=== PATIENT | male | born 1950 | race Two or more races ===

== ENCOUNTER 2024-08-14 00:52 | Emergency (ER) | payer OTHER ==
[~2024-08-14] VITALS: Ht 177.8 cm; Wt 90.9 kg
[2024-08-14 01:56] LABS: COVID19 ANTIGEN SOFIA FIA NEGATIVE (NEGATIVE); Rapid Influenza A Negative (Negative)
[2024-08-14 01:57] LABS: Rapid Influenza B Positive (Negative)
--- NOTE | 2024-08-14 02:07 | ED.PDOC ---
SOB-HPI HPI Comments 73y F who presents to the ED via EMS for chief complaint of flu-like symptoms. Pt states he has been having flu-like symptoms including cough, congestion and runny nose for the past 1 days. Pt states he also slipped and fell onto his knees earlier today and had difficulty getting back up and had to call his sister to help. Pt states after he was taken inside, he called EMS due to his increasing weakness he has been having all day today. Pt states his nephew came to [facility] 1 days prior and tested positive for the Flu. EMS gave pt breathing treatment en route and pt now saturation at 98% on o2 in the ED with noted temp of 100.3 F and BP of 165/87. Pt otherwise in no noted respiratory distress. Pt denies any other symptoms at this time. Chief Complaint: Flu like Time Seen by MD: 02:05 Reviewed notes: Analytical Laboratory Technician Notes Information Source: Patient Mode of Arrival: EMS Vital Signs Vital Signs Date Time Temp Pulse Resp B/P (MAP) Pulse Ox O2 Delivery O2 Flow Rate FiO2 08/14/24 02:49 98.1 08/14/24 02:48 113 19 96 Nasal Cannula* 2 28 08/14/24 02:41 157/76 (103) Physical Exam General: Awake, alert and oriented. No acute distress. Skin: Skin in warm, dry and intact. Appropriate color for ethnicity. HEENT: The head is normocephalic and atraumatic. Conjunctivae are clear without exudates or hemorrhage. Sclera is non-icteric. EOM are intact. No signs of nystagmus. Eyelids are normal in appearance without swelling or lesions. Oral mucosa is pink and moist Neck: The neck is supple with normal range of motion. No JVD. Cardiac: Heart rate and rhythm are normal. No murmurs, gallops, or rubs are auscultated. Respiratory: No signs of respiratory distress. Lung sounds are clear in all lobes bilaterally without rales, ronchi, or wheezes. Abdominal: Abdomen is soft, non-tender without distention. Bowel sounds are present and normoactive in all four quadrants. Extremities: Upper and lower extremities are atraumatic in appearance without deformity or edema. Neurological: The patient is awake, alert and oriented to person, place, and time with normal speech. Speech is clear. There is no facial asymmetry. Psychiatric: Appropriate mood and affect. Good judgement and insight. No visual or auditory hallucinations. Review of Systems: As stated in HPI Past Medical History Past Medical History (Other): chronic knee pain Surgical History: Unknown Family History Family History: Reviewed,noncontributory to illness Social History Smoker: Non-Smoker Alcohol: Denies ETOH Use Drugs: Denies Drug Use Lives In: Home EKG EKG : Pulse Rate (adult): 108 [place]: Normal Cardiac Rhythm: ST Block: None Hypertrophy: None Comments ventricular premature complex Was a procedure done? Was a procedure done?: No Differential Dx Differential Diagnosis: Asthma, CHF, COPD, Pneumonia, Pulmonary Embolism, Respiratory Distress, URI, Other Comments influenza A and B, COVID X-Ray, Labs, Meds, VS Vital Signs Date Time Temp Pulse Resp B/P (MAP) Pulse Ox O2 Delivery O2 Flow Rate FiO2 08/14/24 02:49 98.1 08/14/24 02:48 113 19 96 Nasal Cannula* 2 28 08/14/24 02:41 98.1 113 19 157/76 (103) 97 98.1 08/14/24 02:07 108 08/14/24 01:03 100.3 108 22 165/87 (113) 98 08/14/24 00:58 108 Lab Test 08/14/24 02:00 08/14/24 01:57 08/14/24 01:06 Range/Units Blood Gas Specimen Type Arterial Blood Gas Sample Site Right radial Blood Gas Patient Temperature 37.0 Arterial Blood Date Drawn [id number] Arterial Blood pH 7.442 7.350-7.450 Arterial Blood Partial Pressure CO2 25.7 L 35.0-48.0 mmHg Arterial Blood Partial Pressure O2 63.3 L 83.0-108.0 mmHg Arterial Blood HCO3 17.1 L 21.0-28.0 mmol/L Arterial Blood Oxygen Saturation 92.3 L 94.0-98.0 % Arterial Blood Base Excess -4.9 L -2.0-3.0 mmol/L Arterial Blood Oxyhemoglobin 90.7 L 94.0-98.0 % Arterial Blood Carboxyhemoglobin 1.1 0.5-1.5 % Arterial Blood Methemoglobin 0.6 0.0-1.5 % Cliff Test Yes Blood Gas Total Hemoglobin 16.50 13.5-17.5 g/dL Blood Gas Liter Flow 3.00 Blood Gas Modality Nasal cannula FiO2 % 32.0 White Blood Count 20.3 H 4.4-10.8 10^3/uL Red Blood Count 5.85 4.5-5.90 10^6/uL Hemoglobin 16.0 13.5-17.5 g/dL Hematocrit 48.4 41.0-53.0 % Mean Corpuscular Volume 82.7 80.0-100.0 fL Mean Corpuscular Hemoglobin 27.4 L 28.0-32.0 pg Mean Corpuscular Hemoglobin Concent 33.1 32.0-36.0 g/dL Red Cell Distribution Width 26.0 H 11.8-14.3 % Platelet Count 727 H 140-450 10^3/uL Mean Platelet Volume 7.2 6.9-10.8 fL Neutrophils (%) (Auto) 92.0 H 37.0-80.0 % Lymphocytes (%) (Auto) 2.7 L 10.0-50.0 % Monocytes (%) (Auto) 5.0 0.0-12.0 % Eosinophils (%) (Auto) 0.1 0.0-7.0 % Basophils (%) (Auto) 0.2 0.0-2.0 % Neutrophils # (Auto) 18.7 H 1.6-8.6 10 ^3/uL Lymphocytes # (Auto) 0.5 0.4-5.4 10 ^3/uL Monocytes # (Auto) 1.0 0-1.3 10 ^3/uL Eosinophils # (Auto) 0 0-0.8 10 ^3/uL Basophils # (Auto) 0 0-0.2 10 ^3/uL Nucleated Red Blood Cells 0.0 % Platelet Estimate Increased Large Platelets Few Giant Platelets Few Anisocytosis (manual) Moderate Stomatocytes Few Schistocytes Few Sodium Level 136 136-145 mmol/L Potassium Level 3.2 L 3.5-5.1 mmol/L Chloride Level 100 98-107 mmol/L Carbon Dioxide Level 23 20-31 mmol/L Anion Gap 13 5-15 Blood Urea Nitrogen 11 9-23 mg/dL Creatinine 1.03 0.700-1.30 mg/dL Glomerular Filtration Rate Calc 76 >90 mL/min BUN/Creatinine Ratio 10.7 10.0-20.0 Serum Glucose 149 H 74-106 mg/dL Calcium Level 9.7 8.7-10.4 mg/dL Magnesium Level 1.7 1.6-2.6 mg/dL Total Bilirubin 1.7 H 0.2-1.0 mg/dL Aspartate Amino Transferase (AST) 30 13-40 U/L Alanine Aminotransferase (ALT) 16 7-40 U/L Alkaline Phosphatase 110 46-116 U/L Total Protein 7.4 5.7-8.2 g/dL Albumin 4.7 3.2-4.8 g/dL Influenza Type A Antigen Negative Negative Influenza Type B Antigen Positive Negative SARS-CoV-2 Antigen (Rapid) Negative NEGATIVE Current Medications Medications (Trade) Dose Ordered Sig/Carin Route Start Time Stop Time Status Last Admin Acetaminophen (Tylenol Tablet Or Capsule) 1,000 mg ONCE ONCE PO 08/14/24 02:00 08/14/24 02:01 DC 08/14/24 02:49 [place] [address] Ph: [phone] DIAGNOSTIC IMAGING Diagnostic Imaging Report : [id number] Signed PATIENT: VIGNESH MEEK ACCT: [id number] UNIT: [id number] : 1950 LOC: ER ROOM / BED: / AGE / SEX: 73 / M ADM STATUS: REG ER SERVICE 8 ORDERING PHYSICIAN: JAMES CASTAÑEDA MD PROCEDURE(s): CXR1 - CHEST XRAY 1 VIEW REASON: Cough ORDER NUMBER(s): [id number], ACCESSION NUMBER(s): [id number] CHEST RADIOGRAPH Indication: Cough Technique: Single frontal view of the chest was obtained COMPARISON: None FINDINGS: Lines and Tubes: None Lungs: There is poor visualization of the left lung base with mildly increased interstitial markings in the lungs. Pleura: No effusion. No pneumothorax. Cardiomediastinal contours: Unremarkable Bones: Unremarkable IMPRESSION: 1. Mildly increased interstitial markings. Poor visualization of the left lung base. Findings could represent CHF and/or pneumonia. ATED BY: NICKI WADE MD DICTATED DATE/TIME: 08/14/24234 SIGNED BY: NICKI WADE MD SIGNED DATE/TIME: 08/14/24234 CC: Time of 1ST Reevaluation: 02:35 Reevaluation 1ST: Unchanged Patient Education/Counseling: Diagnosis, Treatment Family Education/Counseling: No Family Present Departure 1 Departure Time of Disposition: 04:22 Impression: Primary Impression: Generalized weakness Additional Impressions: Hypoxia Influenza B Disposition: 09 ADMITTED INPATIENT Condition: Stable Comments 73-year-old male who presented to the emergency department with generalized weakness, unable to get up from for. He is found to be hypoxic. Influenza positive. Started on Tamiflu, supplemental oxygen here in the emergency department. Patient admitted for further treatment, evaluation and monitoring. Extensive evaluation was performed in attempt to identify or rule out: (See differential diagnosis section) The following tests were ordered, and results were reviewed by me: (See diagno stic results section) The following test were independently interpreted by me: EKG, chest x-ray I reviewed and agreed with the following test results read by other providers: N/A I reviewed the following notes from the pt's past medical encounters: Chest x- ray Additional information was gathered from interviewing the following independent historians: EMS personnel Discussion of management or test interpretation with external physician/other qualified health care team coordinator scheduler: N/A Addressed an acute or chronic illness that poses a threat to life or bodily function: Hypoxia Decision regarding hospitalization or escalation of hospital level of care: Risk and benefits of admission for further treatment of patient's condition was considered. Due to patient's current clinical condition, high risk of decline and poor outcome if discharged and need for further inpatient management and monitoring, patient will be admitted to the hospital. Drug therapy requiring intensive monitoring for toxicity: N/A Parenteral controlled substances: N/A Decision regarding elective major surgery with identified patient or procedure risk factors: N/A Decision regarding emergency major surgery: N/A Decision not to resuscitate or to de-escalate care because of poor prognosis: N/A Diagnosis or treatment significantly limited by social determinants of health: N/A Critical Care Note Critical Care Time?: No Stability Stability form required: No Heart Score Heart Score: Heart Score Response (Comments) Value History N/A 0 EKG N/A 0 Age N/A 0 Risk Factors N/A 0 Troponin N/A 0 Total 0 I personally scribed for JAMES CASTAÑEDA MD ([email or web address]) on 08/14/24 at 02:07. Electronically submitted by Juan Manuel Tanner ([facility]). I personally scribed for JAMES CASTAÑEDA MD ([email or web address]) on 08/14/24 at 02:49. Electronically submitted by Juan Manuel Tanner ([facility]). JAMES CASTAÑEDA MD Aug 14, 2024 02:07
[2024-08-14 02:08] LABS: Base Excess -4.9 mmol/L (-2.0-3.0)
[2024-08-14 02:13] LABS: Eosinophils # (auto) 0 10 ^3/uL (0-0.8); Eosinophils % (auto) 0.1 % (0.0-7.0); Hematocrit 48.4 % (41.0-53.0); Lymphocytes # (auto) 0.5 10 ^3/uL (0.4-5.4); Red Blood Cells 5.85 10^6/uL (4.5-5.90)
[2024-08-14 02:14] LABS: Basophils # (auto) 0 10 ^3/uL (0-0.2); Basophils % (auto) 0.2 % (0.0-2.0); Lymphocytes % (auto) 2.7 % (10.0-50.0); Mean Corpuscular Hemoglobin 27.4 pg (28.0-32.0); Mean Corpuscular Hgb Conc. 33.1 g/dL (32.0-36.0); Mean Corpuscular Volume 82.7 fL (80.0-100.0); Neutrophils # (auto) 18.7 10 ^3/uL (1.6-8.6); Platelet Count (auto) 727 10^3/uL (140-450); White Blood Cell 20.3 10^3/uL (4.4-10.8)
[2024-08-14 02:22] LABS: Alanine Aminotransferase 16 U/L (7-40); Alkaline Phosphatase 110 U/L (46-116); Anion Gap 13 (5-15); Aspartate Aminotransferase 30 U/L (13-40); BUN/Creatinine Ratio 10.7 (10.0-20.0); Blood Urea Nitrogen 11 mg/dL (9-23); Calcium 9.7 mg/dL (8.7-10.4); Carbon Dioxide 23 mmol/L (20-31); Chloride 100 mmol/L (98-107); Magnesium 1.7 mg/dL (1.6-2.6)
[2024-08-14 02:23] LABS: Albumin 4.7 g/dL (3.2-4.8); Total Protein 7.4 g/dL (5.7-8.2)
[2024-08-14 02:28] LABS: Bilirubin, Total 1.7 mg/dL (0.2-1.0); Glucose 149 mg/dL (74-106); Potassium 3.2 mmol/L (3.5-5.1); Sodium 136 mmol/L (136-145)
--- NOTE | 2024-08-14 02:38 | DVH ---
CHEST RADIOGRAPH Indication: Cough Technique: Single frontal view of the chest was obtained COMPARISON: None FINDINGS: Lines and Tubes: None Lungs: There is poor visualization of the left lung base with mildly increased interstitial markings in the lungs. Pleura: No effusion. No pneumothorax. Cardiomediastinal contours: Unremarkable Bones: Unremarkable IMPRESSION: 1. Mildly increased interstitial markings. Poor visualization of the left lung base. Findings could rep resent CHF and/or pneumonia.
[2024-08-14 02:48] VITALS: PULSE 113; RESP 19; O2SAT 96
[2024-08-14] MEDS: ACETAMINOPHEN 500 MG TAB or CAP PO ONE (02:49)
[2024-08-14 03:59] LABS: Anisocytosis Moderate; Giant Platelets Few; Large Platelets FEW; Platelet Estimate Increased; Stomatocytes Few
[2024-08-14] MEDS: OSELTAMIVIR 75 MG CAP PO ONE (04:30)
[2024-08-14] MEDS: cefTRIAXone 1GM/50ML D5W 50 ML IV ONE (08:33)
[2024-08-14] MEDS: AZITHROMYCIN 500MG/ 250ML 250 ML IV ONE (08:33)
[2024-08-14 08:41] VITALS: RESP 19; O2SAT 96
[2024-08-14 09:07] LABS: Eosinophils # (auto) 0 10 ^3/uL (0-0.8); Hemoglobin 15.4 g/dL (13.5-17.5); Lymphocytes # (auto) 0.9 10 ^3/uL (0.4-5.4)
[2024-08-14 09:09] LABS: Basophils # (auto) 0 10 ^3/uL (0-0.2); Basophils % (auto) 0.1 % (0.0-2.0); Eosinophils % (auto) 0.1 % (0.0-7.0); Hematocrit 46.2 % (41.0-53.0); Lymphocytes % (auto) 3.7 % (10.0-50.0); Mean Corpuscular Hemoglobin 27.4 pg (28.0-32.0); Mean Corpuscular Hgb Conc. 33.4 g/dL (32.0-36.0); Mean Corpuscular Volume 82.1 fL (80.0-100.0); Monocytes # (auto) 1.5 10 ^3/uL (0-1.3); Monocytes % (auto) 6.5 % (0.0-12.0); Neutrophils # (auto) 20.9 10 ^3/uL (1.6-8.6); Neutrophils % (auto) 89.6 % (37.0-80.0); Platelet Count (auto) 677 10^3/uL (140-450); Red Blood Cells 5.63 10^6/uL (4.5-5.90); White Blood Cell 23.3 10^3/uL (4.4-10.8)
[2024-08-14] MEDS: ALBUTEROL SULF 2.5 MG/0.5ML(0.5%) NEB SOLN ONE (09:19)
--- NOTE | 2024-08-14 10:05 | ECG ---
[facility] Test Date: 2024-08-14 Test Time: 00:58:45 Pat Name: VIGNESH MEEK Department: ER Room: Gender: M Cps Team Lead: BILL : 1950 Requested By: JAMES CASTAÑEDA Order Number: [id number] Reading MD: Toby Mcfarlane Measurements Intervals [place] Rate: 108 P: 55 DC: 189 QRS: -16 QRSD: 96 T: 65 QT: 320 QTc: 429 Interpretive Statements Sinus tachycardia Ventricular premature complex Borderline left axis deviation Abnormal R-wave progression, late transition Electronically Signed On 08-16-2024 10:49:28 PST by Toby Mcfarlane Please click the below link to view image of tracing.
[2024-08-14] MEDS: POTASSIUM CHL 20 Meq TABLET PO ONE (11:15)
[2024-08-14] MEDS: ALBUTEROL SULF 2.5 MG/0.5ML(0.5%) NEB SOLN NEB ONE (11:15)
[2024-08-14 12:10] LABS: Anisocytosis Moderate; Large Platelets FEW; Platelet Estimate Increa
[2024-08-14 17:25] VITALS: BP 145/76; PULSE 76; RESP 19; TEMP 98.5; O2SAT 99
--- NOTE | 2024-08-16 23:54 | DVHINCON2 ---
DATE OF CONSULTATION: 08/14/2024 This is a late note entry for 08/14/2024 CHIEF COMPLAINT: Coming in for weakness and cough. HISTORY OF PRESENT ILLNESS: This is a 73-year-old male with a significant past medical history for diabetes mellitus type 2, past medical history for chronic back pain and apparently COPD, who presents to Emergency Room with 2 days' worth of weakness. The patient apparently says yesterday he was starting to feel apparently weak. The patient apparently also slipped out of his bed and was unable to stand up anymore. The patient says that over the last day or two, he has also had some cough, congestion, runny nose, sore throat. No nausea, no vomiting, but has had body aches and fatigue as well as some shortness of breath. The patient denies any chest pain symptoms. Denies any dizziness, palpitations, or lower extremity edema, but does endorse some mild orthopnea symptoms off and on. PAST MEDICAL HISTORY: Chronic back pain, COPD. PAST SURGICAL HISTORY: None. SOCIAL HISTORY: He is a former smoker, quit about 40 years ago. No alcohol, no illicit drugs. MEDICATIONS: At home, the patient takes Aleve p.r.n. for chronic low back pain. Otherwise, no other medications. MEDICATION ALLERGIES: No known drug allergies. REVIEW OF SYSTEMS: A 10-point review of systems was covered with the patient and was negative with exception to what was present in history of present illness. PHYSICAL EXAMINATION: VITAL SIGNS: Temperature 98.1, pulse rate of 76, respiratory rate of 19, blood pressure 145/76 with a pulse ox of about 99% on room air. GENERAL: Seems to be alert, oriented x 4, not in acute distress male, sitting up in a chair. HEENT: Normocephalic, atraumatic. Extraocular muscles are intact. Pupils are equally round, react to light and accommodations. Mucous membranes look moist. CARDIOVASCULAR: S1, S2 positive, regular rate and rhythm. No rubs, gallops or murmurs. LUNGS: Seems to be clear to auscultation bilaterally without any wheezing, rhonchi or rales. ABDOMEN: Seems to be soft, nontender, nondistended, positive bowel sounds. No guarding, no rebound. EXTREMITIES: Lower extremities, no lower extremity edema, clubbing or cyanosis. NEUROLOGIC: No focal deficits on examination. Cranial nerves testing II through XII overall seems to be intact. LABORATORY WORKUP: White count of 20.3, H and H of 16/48.4, platelet count 727,000. There is 93% neutrophil shift. Sodium 136, potassium 3.2, chloride 100, carbon dioxide of 23, anion gap of 13, BUN of 11, creatinine 1.03. Serum glucose 149, calcium 9.7. Total bilirubin is 1.7, AST of 30, ALT of 16, alkaline phosphatase of 110, albumin 4.7. Blood gas was completed, shows pH 7.42, pCO2 of 25.7, pO2 of 63.3. ABG, O2 saturation 92.3, this is on 3 liters nasal cannula. Serology, influenza A and B was completed. Influenza A was negative. Influenza B was positive. SARS-CoV-2 PCR test was negative. IMAGING: Chest x-ray was completed, shows mildly increased interstitial markings, poor visualization of the left lung base. Findings could represent CHF and/or pneumonia. DIAGNOSES: * Influenza B infection. * Hypoxia. * Generalized weakness. * Hypokalemia. PLAN: The patient was kept in the Emergency Room. The patient was given azithromycin and Rocephin antibiotics as well as multiple med neb treatments in addition to Tamiflu. The patient's influenza B screening did come back positive. The patient's pulse ox went from 93% on 3 liters nasal cannula to 99% by the time of discharge on room air without requirement of any further oxygen requirement. The patient overall felt improved. Chest imaging did show possibility of early onset pneumonia changes in the left lung base due to poor visualization given that the patient does have a mild grade fever as well as leukocytosis. The patient will be discharged to a rehab facility with double antibiotics for community acquired pneumonia with Augmentin double strength 1 tablet twice a day as well as doxycycline 100 mg twice a day for 10 days in addition to the Tamiflu for coverage for influenza B. The patient additionally was given potassium chloride 40 mEq p.o. due to slight hypokalemia. The patient has been informed in case he develops any shortness of breath, chest pain, dizziness, palpitations, nausea, vomiting, p.o. intolerance or any other concerning signs and/or symptoms to return to the Emergency Room. The patient's medications to include antibiotics and Tamiflu was conveyed to his accepting physician at the [facility] facility through the Case Management. He has also been informed to complete a CBC and a BMP repeat within the next 72 hours at the [facility] facility. The patient otherwise will in addition to have nebulizer treatments as needed at the rehab facility and as well as oxygen if needed with 2 liters to maintain pulse ox. He is stable from my point to be discharged to a [facility] facility due to generalized weakness secondary to his current infection. The patient's medication arrangements again will be completed by his accepting physician at the rehab facility. Edy Dominique MD LM/MARQUES/SABRA TID: [id number] RECEIPT: [id number]
== END 2024-08-14 17:24 | disposition home or self-care (01) ==
LOC: ER 00:52 → EDBD 00:52 → ER 17:24
DX: J10.1 Influenza due to other identified influenza virus with other respiratory manifestations (principal); R53.1 Weakness; R09.02 Hypoxemia; Z20.822 Contact with and (suspected) exposure to COVID-19; W01.0XXA Fall on same level from slipping, tripping and stumbling without subsequent striking against object, initial encounter; Y93.89 Activity, other specified; Y92.89 Other specified places as the place of occurrence of the external cause; Y99.8 Other external cause status
CPT/HCPCS: 36415; 36600; 71045; 80053; 82805; 83735; 85025; 87426; 87804; 93005; 96365; 96366; 96368; 99284; J0456; J0696; 94640